=== PATIENT | female | born 1950 | race Caucasian/White ===

== ENCOUNTER 2020-06-20 13:30 | Emergency (ER) | payer MEDICARE ==
[~2020-06-20] VITALS: Ht 160 cm; Wt 81.0 kg
[~2020-06-20 13:30] MED LIST: ACYCLOVIR800 MG PO; AMLODIPINE5 MG PO; AUGMENTIN500TAB PO; FLONASE NASAL50 MCG; FLUARIX QUADRIV1 IN1 IM; MULTI-VITAMIN DAILY PO
[2020-06-20 14:18] LABS: IMMATURE GRANULOCYTES 0.8 % (0.0-5.0); MEAN CELL VOLUME 87.8 fL CALC (80.0-100.0); MEAN CORPUSCULAR HGB CONC 31.9 g/dL CAL (32.0-36.0); NEUT# 5.79 thou/uL (2.00-7.15); RED BLOOD COUNT 4.43 mill/uL (4.20-5.60); RED CELL DISTRI WIDTH 13.5 % (11.5-15.5)
[2020-06-20 14:20] LABS: ALBUMIN 3.7 g/dL (3.2-5.0); ALKALINE PHOSPHATASE 146 u/l (38-126); BUN 10 mg/dL (8-23); BUN/CREATININE RATIO 14 (12-20 (CALC)); CARBON DIOXIDE 23 mmol/l (22-30); CHLORIDE 101 mmol/l (95-108); CREATININE 0.8 mg/dL (0.5-1.0); GFR > 60 ML/MIN (>=60 (CALC)); GFR FOR AFR.AMER. > 60 ML/MIN (>=60 (CALC)); HEMATOCRIT 38.9 % (37.0-47.0); HEMOGLOBIN 12.4 g/dl (12.0-16.0); LIPASE 153 u/l (23-300); SGOT/AST 32 u/l (9-36); TOTAL PROTEIN 6.7 g/dL (6.3-8.2)
[2020-06-20 14:26] LABS: ACT PARTIAL THROMBO TIME 25.2 SECONDS (20.0-32.5); PROTHROMBIN TIME 10.2 SECONDS (9.0-12.5)
[2020-06-20 14:30] LABS: D-DIMER 0.78 mg/L (0.19-0.60)
[2020-06-20 14:40] LABS: ANION GAP 13 (6-22 (CALC)); BILIRUBIN, TOTAL 0.4 mg/dL (0.0-1.4); SODIUM 133 mmol/l (137-146)
[2020-06-20 15:22] LABS: URINE BILIRUBIN - DIPSTICK NEGATIVE (NEGATIVE); URINE BLOOD DIPSTICK NEGATIVE (NEGATIVE); URINE COLOR YELLOW; URINE GLUCOSE - DIPSTICK NEGATIVE (NEGATIVE); URINE KETONE NEGATIVE (NEGATIVE); URINE LEUK ESTERASE SMALL (NEGATIVE); URINE NITRITE - DIPSTICK NEGATIVE (Negative); URINE PROTEIN - DIPSTICK NEGATIVE (NEG-TRACE); URINE SPECIFIC GRAVITY >=1.030; URINE UROBILINOGEN - DIPSTICK 0.2 E.U./dL (0.2)
[2020-06-20 15:32] LABS: URINE SQUAMOUS EPITHELIAL CELL MODERATE EPI/hpf (0-FEW)
[2020-06-20] MEDS ORDERED: ZITHROMAX250 MG PO (18:01)
[2020-06-20] MEDS ORDERED: DECADRON2 MG PO (18:01)
[2020-06-20 19:10] VITALS: BP 187/74
== END 2020-06-20 20:08 | disposition home or self-care (01) ==
LOC: ED 13:30
DX: U07.1 COVID-19 (principal); J12.82 Pneumonia due to coronavirus disease 2019; N39.0 Urinary tract infection, site not specified; R42 Dizziness and giddiness; I10 Essential (primary) hypertension
CPT/HCPCS: Q9967

== ENCOUNTER 2022-03-04 16:12 | Emergency (ER) | payer MEDICARE ==
[~2022-03-04] VITALS: Ht 160 cm; Wt 84.0 kg
[~2022-03-04 16:12] MED LIST changes: +DECADRON2 MG PO; +ZITHROMAX250 MG PO
[2022-03-04 17:09] LABS: URINE BILIRUBIN - DIPSTICK NEGATIVE (NEGATIVE); URINE BLOOD DIPSTICK NEGATIVE (NEGATIVE); URINE COLOR YELLOW; URINE GLUCOSE - DIPSTICK NEGATIVE (NEGATIVE); URINE KETONE NEGATIVE (NEGATIVE); URINE LEUK ESTERASE TRACE (NEGATIVE); URINE PROTEIN - DIPSTICK NEGATIVE (NEG-TRACE)
[2022-03-04 17:13] LABS: URINE NITRITE - DIPSTICK POSITIVE (Negative)
[2022-03-04] MEDS ORDERED: NITROFURANTN100 M2 PO (17:21)
[2022-03-04 17:35] LABS: URINE BACTERIA RARE hpf; URINE SQUAMOUS EPITHELIAL CELL FEW EPI/hpf (0-FEW)
[2022-03-04 17:41] VITALS: BP 162/89
== END 2022-03-04 17:46 | disposition home or self-care (01) ==
LOC: ED 16:12
PROVIDERS: Nurse Practitioner
DX: N39.0 Urinary tract infection, site not specified (principal); I10 Essential (primary) hypertension